=== PATIENT | female | born 1980 | race Caucasian/White ===

== ENCOUNTER → 2020-01-11 | Outpatient (CLI) | payer BC, OTHER ==
[~2020-01-11] MED LIST: ACHYD1T PO; ATEN50TA; BENA1TAB3 PO; BIRTH CONTROL; CATHETER FLUSH 10 ML SYR IV PRN; CETI10TA17 PO; Ibuprofen PO; METFOR850T; MTP100TCR PO; PREN-3
--- NOTE | 2020-01-11 13:02 | Diagnostic Imaging Report ---
INDICATION: Right upper quadrant pain. Patient was administered 5.3 mCi technetium 99m Choletec intravenously and imaging over the abdomen was performed. After 60 minutes patient ingested one can of ensure and a gallbladder ejection fraction was calculated.. Note is made patient did complain of stabbing back pain and abdominal pain 30 minutes after ingestion of ensure. There is homogeneous uptake of activity throughout the liver. Prompt excretion of activity into the common duct and gallbladder is noted. There is normal passage of activity into the small bowel. There appears to be minimal bile reflux into the stomach. Gallbladder ejection fraction is abnormally low at 6%. Normal values of 35% or greater. IMPRESSION: 1. Patent cystic duct and common bile duct. 2. Mild gastric reflux. 3. Abnormally low gallbladder ejection fraction of 6%. Patient did complain of significant pain 30 minutes after ensure ingestion. Dictated by: Dictated on workstation # [id number]
== END ==
LOC: CARD 10:24
PROVIDERS: ATTEND Surgery
DX: K21.9 Gastro-esophageal reflux disease without esophagitis (principal); R11.2 Nausea with vomiting, unspecified
CPT/HCPCS: 78227; A9537

== ENCOUNTER → 2021-05-04 | Outpatient (CLI) | payer BC ==
[~2021-05-04] MED LIST changes: -CATHETER FLUSH 10 ML SYR IV PRN
[2021-05-04 14:44] LABS: ABSOLUTE RETIC # 82 10e9/uL (24-90); RETICULOCYTE % 1.81 % (0.50-2.40)
[2021-05-04 15:25] LABS: BASOPHILS % (MANUAL) 2 %; EOSINOPHILS % (MANUAL) 3 %; LYMPHOCYTES % (MANUAL) 41 %; MONOCYTES % (MANUAL) 4 %; NEUTROPHILS % (MANUAL) 46 %; RBC MORPH NORMAL; REACTIVE LYMPHOCYTES 4 %
== END ==
LOC: LABNPT 14:20
PROVIDERS: ATTEND Family Medicine
DX: Z01.89 Encounter for other specified special examinations (principal)
CPT/HCPCS: 85007; 85045; 85055